=== PATIENT | female | born 2000 | race African-American/Black ===

== ENCOUNTER 2020-04-18 20:39 | Emergency (ER) | payer SELFPAY ==
[~2020-04-18] VITALS: Ht 162.6 cm; Wt 62.3 kg
[2020-04-18 20:47] VITALS: BP 138/95
[2020-04-18] MEDS ORDERED: LIDOCAINE HCL/PF 1% 10 MG/ML 5ML VIAL IJ ONE (21:30)
[2020-04-18] MEDS ORDERED: IBUPROFEN 600MG TABLET PO ONE (21:30)
[2020-04-18] MEDS ORDERED: CEPHALEXIN 250MG CAPSULE PO ONE (23:00)
== END 2020-04-19 00:05 | disposition home or self-care (01) ==
LOC: ER 20:39
DX: S01.511A Laceration without foreign body of lip, initial encounter (principal); S00.83XA Contusion of other part of head, initial encounter; S01.83XA Puncture wound without foreign body of other part of head, initial encounter; Y04.0XXA Assault by unarmed brawl or fight, initial encounter; Y07.432 Male friend of parent (co-residing in household), perpetrator of maltreatment and neglect; Y93.89 Activity, other specified; Y92.018 Other place in single-family (private) house as the place of occurrence of the external cause
CPT/HCPCS: 70486; 81025; 99284; J3490

== ENCOUNTER 2020-05-01 15:09 | Emergency (ER) | payer MEDICAID ==
[~2020-05-01] VITALS: Ht 162.6 cm; Wt 51.0 kg
[2020-05-01 15:42] VITALS: BP 118/56
== END 2020-05-01 17:33 | disposition home or self-care (01) ==
LOC: ER 15:09
DX: S01.511D Laceration without foreign body of lip, subsequent encounter (principal); X58.XXXD Exposure to other specified factors, subsequent encounter
CPT/HCPCS: 99281

== ENCOUNTER 2022-07-18 18:12 | Emergency (ER) | payer MEDICAID ==
[~2022-07-18] VITALS: Ht 162.6 cm; Wt 82.0 kg
[2022-07-18] MEDS ORDERED: ACETAMINOPHEN 325MG TABLET PO ONE (19:00)
[2022-07-18 19:18] LABS: HCG SCREEN NEGATIVE
[2022-07-18 20:00] VITALS: BP 116/56
== END 2022-07-18 20:35 | disposition home or self-care (01) ==
LOC: ER 18:12
DX: R55 Syncope and collapse (principal); T63.441A Toxic effect of venom of bees, accidental (unintentional), initial encounter; I10 Essential (primary) hypertension; Z13.9 Encounter for screening, unspecified; Y92.9 Unspecified place or not applicable
CPT/HCPCS: 82962; 84703; 93005; 99284

== ENCOUNTER 2023-10-23 15:37 | Emergency (ER) | payer MEDICAID, OTHER ==
[~2023-10-23] VITALS: Ht 165.1 cm; Wt 63.0 kg
[2023-10-23 16:45] VITALS: BP 138/80; PULSE 54; RESP 16; TEMP 98.3; O2SAT 100
[2023-10-23] MEDS ORDERED: ACETAMINOPHEN 325MG TABLET PO ONE (17:15)
[2023-10-23 17:47] LABS: BASOPHILS % 0.6 % (0.0-2.0); EOSINOPHILS % 0.7 % (0.0-5.0); HEMOGLOBIN. 12.5 g/dL (12.0-16.0); LYMPHOCYTES % 39.7 % (20.0-50.0); MEAN CORPUSCULAR HEMOGLOBIN 32.6 pg (28.0-32.0); MEAN CORPUSCULAR HGB CONC 33.7 g/dL (31.0-37.0); MEAN CORPUSCULAR VOLUME 96.8 fL (81.0-99.0); MEAN PLATELET VOLUME 7.3 fl (7.4-10.4); MONOCYTES % 13.1 % (2.0-8.0); NEUTROPHILS % 45.9 % (40.0-76.0); PLATELET 362 x1000/uL (130-400); RED BLOOD CELL COUNT 3.83 mill/uL (4.2-5.4); RED CELL DISTRIBUTION WIDTH 12.6 % (11.6-14.6); WHITE BLOOD COUNT 4.9 x1000/uL (4.5-11.0)
[2023-10-23 18:34] LABS: ALANINE AMINOTRANSFERASE 10 IU/L (10-49); ALBUMIN 4.1 g/dL (3.2-4.8); ASPARTATE AMINOTRANSFERASE 13 IU/L (<34); B-HCG QUANTITATIVE 13798 mIU/mL (<3); BILIRUBIN TOTAL 0.4 mg/dL (0.1-1.0); CALCIUM 9.7 mg/dL (8.7-10.4); CARBON DIOXIDE 22 mEq/L (21-32); CHLORIDE 105 mEq/L (98-107); CREATININE 0.6 mg/dL (0.6-1.0); GLUCOSE 82 mg/dL (70-105); POTASSIUM 3.9 mEq/L (3.5-5.1); PROTEIN TOTAL 7.1 g/dL (6.0-8.3); SODIUM 136 mEq/L (136-145); UREA NITROGEN BLOOD 7 mg/dL (9-23)
[2023-10-23] MEDS ORDERED: ACETAMINOPHEN 325MG TABLET PO NR (20:30)
== END 2023-10-23 20:39 | disposition home or self-care (01) ==
LOC: ER 16:03
DX: O46.91 Antepartum hemorrhage, unspecified, first trimester (principal); Z3A.01 Less than 8 weeks gestation of pregnancy
CPT/HCPCS: 36415; 76801; 80053; 84702; 85025; 86850; 86900; 99284